=== PATIENT | male | born 1950 | race Caucasian/White ===

== ENCOUNTER 2024-01-19 07:59 | Outpatient (CLI) | payer OTHER, SELFPAY ==
--- NOTE | ~2024-01-19 | MR_ITS ---
EXAMINATION: MR shoulder RT wo con DATE: 01/19/2024 08:42 INDICATION: Right shoulder adhesive capsulitis with pain TECHNIQUE: Magnetic resonance imaging (MRI) of the right shoulder was performed without intravenous c ontrast. Sequences included axial PD-weighted FS FSE, coronal oblique PD-weighted FS FSE, coronal obl ique T2-weighted FS FSE, sagittal PD-weighted FS FSE, and sagittal T1-weighted SE. COMPARISON: None. FINDINGS: Coracoacromial arch: The acromion undersurface is minimally curved in morphology (type I-II). The coracoacromial ligament is normal. Moderate acromioclavicular osteoarthritis. Rotator cuff: Mild supraspinatus and infraspinatus tendinopathy without tear. Moderate subscapularis tendinopathy w ith small tear along the lateral margin of the lesser tuberosity footplate extending 6 mm craniocauda lly caudally and up to 6mm in maximal medial to lateral width, the majority of which appears to repre sent a split tear between the intact portion of the tendon attached to the lesser tuberosity and the more superficial portion of the tendon which remains attached to the intact transverse humeral ligame nt. The teres minor tendon is normal. There is mild fatty atrophy of the teres minor muscle belly. Biceps tendon, glenoid labrum and glenohumeral cartilage: Mild tendinopathy and longitudinal split tearing of the intra-articular portion of the long head [place] ps tendon. Extensive labral tear with relatively well-defined linear labral tear extending from the 1 :00 position of the anterosuperior labrum to the 6:30 position inferiorly. There is more complex appe arance to the tear of the more posterior superior labrum which demonstrates a macerated appearance at the 9:30-11:00 position. Glenohumeral cartilage appears relatively preserved with smooth chondral javier rface. Fluid: Physiologic amount of fluid in the glenohumeral joint and biceps tendon sheath. No loose osteochondr al bodies. Small amount of fluid in the subacromial/subdeltoid bursa consistent with mild bursitis. Bones: Normal marrow signal with fracture or pathologic marrow replacing process. IMPRESSION: 1. Extensive labral tear sparing only the posterior to posterior inferior labrum. 2. Mild to moderate rotator cuff tendinopathy with small partial-thickness tear along the lateral mar gin of the lesser tuberosity footplate of the subscapularis tendon. 3. Mild tendinopathy and longitudinal split tearing of the intra-articular long head biceps tendon. 4. Moderate acromioclavicular osteoarthritis 5. Mild subacromial/subdeltoid bursitis. Reviewed, dictated and finalized at location B. ARCH CHEF IMPRESSION: 1. Extensive labral tear sparing only the posterior to posterior inferior labru m. 2. Mild to moderate rotator cuff tendinopathy with small partial-thickness tear along the lateral margin of the lesser tuberosity footplate of the subscapular is tendon. 3. Mild tendinopathy and longitudinal split tearing of the intra-articular long head biceps tendon. 4. Moderate acromioclavicular osteoarthritis 5. Mild subacromial/subdeltoid bursitis.
== END 2024-01-19 08:00 | disposition home or self-care (01) ==
LOC: GOSHIMG 08:01
PROVIDERS: PCP Internal Medicine
DX: M75.01 Adhesive capsulitis of right shoulder (principal); M19.011 Primary osteoarthritis, right shoulder
CPT/HCPCS: 73221